=== PATIENT | male | born 1940 | race Caucasian/White ===

== ENCOUNTER 2017-05-03 01:40 | Inpatient (IN) | payer OTHER ==
[2017-05-03] VITALS (12 sets, daily range): BP systolic 114–154; BP diastolic 74–93
[~2017-05-03] VITALS: Ht 172.7 cm; Wt 98.5 kg
--- NOTE | ~2017-05-03 | CON ---
[place], [place] REPORT OF CONSULTATION NAME: CLAUDIA ALTAMIRANO UNIT #: [id number] ROOM: 519 DOCTOR: ADARSH VIEIRA MD BIRTHDATE: [birth year] DOS: REQUESTING PHYSICIAN: Dr. Wray. REASON FOR CONSULTATION: Incidental finding of new onset atrial fibrillation. ASSESSMENT: 1. Current admission due to incidental finding of atrial fibrillation in the process of patient getting his colonoscopy. 2. Shortness of breath, dyspnea on exertion, but no symptomatic palpitation. 3. No chest pain, heaviness, tightness or jaw pain. 4. History of coronary artery disease, status post PTCA stent placement with Dr. Burnett back in 2011. No record available to me at this time. 5. Hypertension. 6. Unknown level of lipid. 7. Previous history of tobacco abuse, the patient quit a year ago. 8. History of bladder cancer, status post surgery and chemotherapy in 1999. 9. Current evidence of blood in the stool (hemoglobin and hematocrit is still pending). PLAN: 1. Cycle cardiac enzymes. 2. Check D-dimer. 3. Fasting lipid panel. 4. Initiate heparin or Lovenox or Noak's after results of CBC is available. 5. Lopressor 25 mg q. 6 hours (dose will be switched to long-acting in a.m.). 6. Wean off Cardizem drip after starting beta-coleen for heart at least in 90. 7. Echocardiogram. 8. NPO for a Lexiscan stress test in a.m. 9. Attempt for JOEY cardioversion will be done in 3-4 weeks as an outpatient. 10. Consider highly recommend sleep study as an outpatient. 11. Exercise and weight loss. 12. Follow up in our clinic in 4 weeks here in [place]. HISTORY OF PRESENT ILLNESS: The patient is a pleasant 77-year-old gentleman well known to our group with Dr. Newman. The patient apparently underwent a PTCA stent placement following an acute myocardial infarction back in [address] Burnett. No record available to me at this time, but from the Cardiology point of view, the patient apparently had been doing relatively well, was last seen by Dr. Newman, but she had not followed up with our group following after her departure. The patient denies ever any complaint of chest pain, chest pressure, heaviness or tightness. Never there is no jaw pain, no left arm pain, no back pain. The patient presented to the hospital for a colonoscopy where we found incidentally to be in AFib. The patient denies any specific cardiac complaint, but he has been short of breath for the past year with no significant deterioration over the past few weeks. No fever, no chills, no night sweats. Maintain good appetite, no weight loss. Sleeps on 2 pillows with no reported PND, orthopnea or pedal edema. The patient does give a history of loud snoring (his was present during this exam). The patient has been doing relatively well from the heart point of view. [place], [place] REPORT OF CONSULTATION NAME: CLAUDIA ALTAMIRANO UNIT #: [id number] ROOM: [facility] DOCTOR: ADARSH VIEIRA MD BIRTHDATE: [birth year] PAST MEDICAL HISTORY: As detailed in my assessment. SOCIAL HISTORY: The patient quit smoking last year. Prior to that, he smoked since he was 13-year-old. No heavy alcohol or illicit drug abuse. FAMILY HISTORY: There is no early family history of heart disease. CURRENT MEDICATIONS: On presentation to the hospital include Xalatan, aspirin, Neurontin, Prinivil, Procardia, omeprazole and multivitamin. ALLERGIES: The patient has no known drug allergies. REVIEW OF SYSTEMS: Currently, the patient denies any headache, diplopia or blurry vision. No fever, no chills, no night sweats. No abdominal pain, no more bright red blood per rectum. No reported tarry stools. The patient admits to joint pain and low back pain, but no muscular pain, no anxiety, no depression. no o polyuria, no polydipsia, no skin rash. Review of all other systems has been negative. PHYSICAL EXAMINATION: GENERAL: The patient is alert, oriented x3, quite pleasant. The patient is flat in bed in no apparent distress. VITAL SIGNS: Blood pressure 141/90, heart rate 106, respiratory rate of 16, temperature 98.2. HEENT: Extraocular muscles intact. Pupils equal, round and reactive to light. Conjunctivae: No pallor. Throat: No petechiae. NECK: Good upstroke. Unable to appreciate any bruit. No lymphadenopathy, no thyromegaly. HEART: S1, S2 with distant heart sounds. Unable to appreciate any rub, no retrosternal heave. CHEST AND BACK: No deformities. LUNGS: Decreased air movement, but no michael wheezing or rales. ABDOMEN: Obese, soft, nontender. Present bowel sounds. No masses, no bruits. LOWER EXTREMITIES: There is mild ankle edema with faint distal pulses. NEUROLOGIC: Grossly nonfocal. SKIN: No significant rash. LABORATORY DATA: CPK is 40, MB is 0.9, troponin 0.022. No other labs are available to me at this time. [place], [place] REPORT OF CONSULTATION NAME: CLAUDIA ALTAMIRANO UNIT #: [id number] ROOM: 519 DOCTOR: ADARSH VIEIRA MD BIRTHDATE: [birth year] ADARSH VIEIRA MD CM:CONSTR:REPORT OF CONSULTATION 1205 05/03/17 0426 interface
--- NOTE | ~2017-05-03 | ST ---
[place], [place] EXERCISE STRESS TEST REPORT NAME: [facility]O [facility]: [id number] UNIT #: [id number] ROOM: [facility] DOCTOR: ADARSH VIEIRA MD BIRTHDATE: [birth year] DOS: INDICATION: Atrial fibrillation. PROCEDURE: The patient was brought into the stress lab. The procedure was explained with risks, benefits, and alternatives. Lexiscan was injected. The patient tolerated the procedure well. Following the injection, there was no evidence of any significant ST or T-wave changes suggestive of myocardial ischemia. No arrhythmias were noted. Occasional aberrantly conducted beats were seen. BLOOD PRESSURE RESPONSE: Resting blood pressure 168/80 with ending blood pressure 148/68. FINAL IMPRESSION: 1. Adequate Lexiscan stress test. 2. Negative Lexiscan stress test for stress-induced myocardial ischemia. 3. No arrhythmias were noted. 4. Nuclear images will be reported separately. ADARSH VIEIRA MD CM:STRESS:EXERCISE STRESS TEST REPORT [id number] ADARSH VIEIRA MD
--- NOTE | ~2017-05-03 | PR ---
[place], [place] PROGRESS NOTE NAME: [id number] UNIT #: [id number] ROOM: 519 DOCTOR: ADARSH VIEIRA MD BIRTHDATE: [birth year] DOS: 05/04/2017 SUBJECTIVE: The patient is sitting in the stress lab. Denies any specific cardiac complaint. He is more alert, more comfortable, no specific cardiac complaint. No chest pain, no chest pressure, no symptomatic palpitation. OBJECTIVE: VITAL SIGNS: Blood pressure 128/64, heart rate 68, respiratory rate of 14, temperature 97.8. NECK: Good upstroke, no bruit. HEART: S1, S2 with no rub. LUNGS: Decreased air movement, but no michael wheezing or rales. ABDOMEN: Obese, soft, nontender. Present bowel sounds. EXTREMITIES: Lower extremities, no significant edema. LABORATORY DATA: White count 9.3, hemoglobin 13.5. Potassium 3.4, GFR more than 60%. Hemoglobin A1c 6.2. ASSESSMENT AND PLAN: Incidental finding of atrial fibrillation on patient's presentation for colonoscopy and EGD. So far, the patient has been doing relatively well. He is completely asymptomatic, his heart rate is quite well controlled on the current dose of beta coleen. There was also no evidence of any bleed. For that, we will switch Lopressor to 50 mg twice a day along with switching Lovenox to Xarelto 20 mg once a day with food. The patient can be discharged. We will be seeing him in clinic within 3 weeks to consider JOEY and cardioversion. Highly recommend checking for sleep study for possible obstructive sleep apnea in view of his current diagnosis. Exercise, weight loss is also highly recommended. Again, we will be seeing the patient within 3-4 weeks in our clinic here. ADARSH VIEIRA MD CM:DANNY [id number] 1427 ADARSH VIEIRA MD 05/05/17 0634 interface
--- NOTE | ~2017-05-03 | O ---
[place], [place] OPERATIVE NOTE NAME: CLAUDIA ALTAMIRANO UNIT #: [id number] ROOM: 519 DOCTOR: KENDRA NGUYEN MD BIRTHDATE: [birth year] DOS: PROCEDURE #1 HISTORY OF PRESENT ILLNESS: The patient is a 77-year-old who has presented with a chief complaint of guaiac positivity, undergoing investigation. ALLERGIES: No known medication. FAMILY HISTORY: Noncontributory. PAST SURGICAL HISTORY: Back and bladder CA. PAST MEDICAL HISTORY: Hypertension and chronic back pain. SOCIAL HISTORY: Nonsmoker. Social alcohol consumer. The patient is on aspirin. PROCEDURE: Today's procedure part of investigation is panendoscopy and colonoscopy. PREMEDICATIONS: Versed and Diprivan. SCOPE: Olympus forward-viewing gastroscope Q10 video. REPORT: After putting the patient in left lateral position and after application of lubricant to the scope, the scope was introduced. Thereafter, under direct visualization, I advanced through the length of esophagus without difficulty. Gastric pouch was entered. Multiple antral erosions were identified. Biopsy from margin of one was obtained. Photographic series done. Duodenitis was noticed. The patient was gradually extubated along the greater curvature. The patient tolerated the procedure well. IMPRESSION: Gastritis, multiple gastric erosions most likely secondary to aspirin status post biopsy. PLAN AND DISCUSSION: The patient is going to be started on omeprazole 20 mg 1 daily for duodenitis and gastric erosions. The patient's aspirin is going to be advised to be taken only on full stomach. On the other hand, we are going to proceed with colonoscopy. PROCEDURE #2 HISTORY OF PRESENT ILLNESS: A 77-year-old patient who has presented with chief complaint of guaiac positivity, undergoing investigation. PROCEDURE: Today's procedure part of investigation is colonoscopy plus piecemeal polypectomy of the polyp at 7 cm in rectal pouch, which is broad plus tattoo marking of the site. [place], [place] OPERATIVE NOTE NAME: CLAUDIA ALTAMIRANO UNIT #: [id number] ROOM: [facility] DOCTOR: KENDRA NGUYEN MD BIRTHDATE: [birth year] REPORT: After putting the patient in the left lateral position and after application of lubricant to rectal pouch and digital examination, scope was introduced. Thereafter, under direct visualization, I advanced through the length of colon without difficulty. Base of the cecum explored. Appendiceal orifice identified and ileocecal valve was defined. Scope was withdrawn back to the sigmoid colon where there is moderate diverticulosis. There was some residual retained stool. As much as possible, this was suctioned out and lavaged. In the rectal pouch at approximately 7 cm from rectal sphincter, broad-based polypoid lesion, which is fragile in its consistency with piecemeal polypectomy assessed. I am concerned for dysplastic cell in this polyp. Tattoo marking of the site was performed and air was suctioned out. The patient extubated and tolerated the procedure well. IMPRESSION: Broad based sessile polypoid lesion at 7 cm rectal pouch, ruling out carcinoma, status post piecemeal polypectomy, status post tattoo marking, diverticulosis of sigmoid colon in moderate degree and some retained stool. PLAN AND DISCUSSION: Withholding aspirin for 3 days, omeprazole 20 mg 1 daily for the upper GI findings and we will await pathology, which has been earmarked to rule out carcinoma. KENDRA NGUYEN MD CM:OPRECORD:OPERATIVE NOTE [id number] LAURENT NGUYEN MD 05/03/17 1402 interface
[~2017-05-03 01:40] MED LIST: ASPIRIN ADULT L81 M1 PO; CLARITIN LIQUI-10 MG PO; ESIDREX,ORETIC,25 MG PO; NEURONTIN300 MG PO; OSCAL/D,OYSTER250 MG PO; PLAVIX75 MG PO; PRESERVISION L1 EACH PO; PRINIVIL20 MG PO; PROCARDIA XL30 MG PO; XALATAN 0.005%2.5 ML OS
[2017-05-03] MEDS ORDERED: OMEPRAZOLE20 M2 PO (08:46)
--- NOTE | 2017-05-03 09:27 | NUR ---
DR. GREEN NOTIFIED REGARDING PT. WITH NEW ONSET AFIB DR. GREEN ACCEPTED PT. FOR [facility] [place] WITH CARDIAC CONSULT DR. ROPER WITH CARDIAC ENZYMES X3, AND 12 LEAD EKG DOCUMENT RESTORER NOTIFIED OF ADMISSION PT. GOING TO 5TH FLOOR ROOM 519
--- NOTE | 2017-05-03 09:40 | NUR ---
DR. VIEIRA STRIP FEEDER NOTIFIED OF CONSULT.
[2017-05-03 09:55] LABS: CKMB 0.9 ng/ml (0.5-3.6); TROPONIN I 0.022 ng/ml (<0.045)
--- NOTE | 2017-05-03 10:13 | NUR ---
FAMILY REQUESTED DR. GREEN NOT TO BE ON THE CASE AND WANTED THE HOSPITALIST DR. GREEN NOTIFIED OF REQUESTED. DR. ESTES HOSPITALIST NOTIFIED AND ACCEPTED CARE OF PT. THE ACCEPTING NURSE ON 5TH FLOOR WAS INFORMED OF THE CHANGE ALONG WITH THE ORDERS FROM THE DOCTOR THAT WAS INITIATED IN RECOVERY.
--- NOTE | 2017-05-03 11:03 | NUR ---
A 77, admitted to , under the services of ANICETO Aviles DO with a diagnosis of ATRIAL FIB/FLUTTER. Chief complaint is RAPID HEART RATE. Patient arrived via bed from OP/ADMIT. Monitor applied. Initial assessment completed. Vital signs taken and recorded. ANICETO AVILES DO notified of admission to the unit. Orders received. See assessment for past medical history, medications and allergies. Patient and/or family oriented to unit. [facility] ICCU visitation policy reviewed. Clothing/patient valuable form completed. HARPREET BRADY
[2017-05-03 12:53] LABS: BASO % 0.2 % (0.0-1.0); EOS # 0.1 10*3/uL (0.0-0.4); EOS % 1.2 % (1.0-4.0); HEMATOCRIT 44.8 % (42.0-52.0); HEMOGLOBIN 14.1 g/dl (14.0-18.0); LYMPH # 1.7 10*3/uL (1.3-4.4); LYMPH % 16.9 % (27.0-41.0); MEAN CELL VOLUME 94.7 fl (80.0-94.0); MEAN CORPUSCULAR HGB 29.8 pg (27.0-31.0); MEAN CORPUSCULAR HGB CONC 31.5 g/dl (33.0-37.0); MEAN PLATELET VOLUME 10.7 fl (9.6-12.3); MONO # 0.8 10*3/uL (0.1-1.0); MONO % 8.2 % (3.0-9.0); NEUT # 7.1 10*3/uL (2.3-7.9); NEUT % 73.1 % (47.0-73.0); PLATELET COUNT AUTOMATED 185 10*3/uL (130-400); RED BLOOD COUNT 4.73 10*6/uL (4.50-5.90); WHITE BLOOD COUNT 9.8 10*3/uL (4.8-10.8)
[2017-05-03 13:09] LABS: FREE T4 1.36 ng/dl (0.76-1.46)
[2017-05-03 13:12] LABS: ALBUMIN 3.2 gm/dl (3.1-4.5); CREATININE 1.4 mg/dL (0.70-1.30); PHOSPHOROUS 2.7 mg/dL (2.5-4.9); POTASSIUM 3.7 mmol/L (3.5-5.1); TOTAL PROTEIN 7.2 gm/dL (6.4-8.2)
[2017-05-03 13:20] LABS: THYROID STIM HORMONE (HS) 1.37 uIU/ml (0.358-4.75)
--- NOTE | 2017-05-03 22:00 | NUR ---
16 FR F/C INSERTED IN PT AT THIS TIME. IMMEDIATE RETURN OF CLEAR LIGHT YELLOW URINE OBTAINED. PT TOLERATED PROCEDURE VERY WELL. NO C/O VOICED AT THIS TIME.
[2017-05-04] VITALS (8 sets, daily range): BP systolic 120–154; BP diastolic 64–81
[2017-05-04 07:14] LABS: BASO % 0.2 % (0.0-1.0); EOS # 0.2 10*3/uL (0.0-0.4); EOS % 1.6 % (1.0-4.0); HEMATOCRIT 42.9 % (42.0-52.0); HEMOGLOBIN 13.5 g/dl (14.0-18.0); LYMPH # 1.9 10*3/uL (1.3-4.4); LYMPH % 20.6 % (27.0-41.0); MEAN CELL VOLUME 95.1 fl (80.0-94.0); MEAN CORPUSCULAR HGB 29.9 pg (27.0-31.0); MEAN CORPUSCULAR HGB CONC 31.5 g/dl (33.0-37.0); MEAN PLATELET VOLUME 11.7 fl (9.6-12.3); MONO # 0.9 10*3/uL (0.1-1.0); MONO % 9.5 % (3.0-9.0); NEUT # 6.3 10*3/uL (2.3-7.9); NEUT % 67.8 % (47.0-73.0); PLATELET COUNT AUTOMATED 170 10*3/uL (130-400); RED BLOOD COUNT 4.51 10*6/uL (4.50-5.90); RED CELL DISTRI WIDTH 14.2 % (0-14.5); WHITE BLOOD COUNT 9.3 10*3/uL (4.8-10.8)
[2017-05-04 07:42] LABS: ACT PARTIAL THROMBO TIME 27.2 SECONDS (20.8-31.5); INTERNATIONAL NORM RATIO 1.1 (2.0-3.5)
[2017-05-04 07:43] LABS: BUN 19 mg/dl (7-24); CHLORIDE 110 mmol/L (98-107); CHOLESTEROL 113 mg/dL (<200); CREATININE 1.15 mg/dL (0.70-1.30); HDL CHOLESTEROL 40 mg/dl (40-60); LDL CHOLESTEROL 48 mg/dL (9-159); MAGNESIUM 1.9 mg/dL (1.5-2.1); POTASSIUM 3.4 mmol/L (3.5-5.1); SODIUM 143 mmol/L (136-145); TRIGLYCERIDES 127 mg/dl (<150); VLDL CHOLESTEROL 25 mg/dL (6-40)
[2017-05-04 08:05] LABS: VITAMIN D, 25-HYDROXY 32.7 ng/mL (30-100)
--- NOTE | 2017-05-04 09:00 | NUR ---
case management attempted to visit with patient, patient was out of room at this time, will see later today
--- NOTE | 2017-05-04 10:30 | NUR ---
INFORMED CONSENT SIGNED FOR LEXISCAN WITH DR VIEIRA. RESTING EKG AF WITH RARE PVC AND RBBB. POX 93-94% VIA RA, DIFFUSE RHONCHI, CLEARING WITH A COUGH. COMPLETED ONE MINUTE OF LEXISCAN PROTOCOL RECEIVING LEXISCAN 0.4 MG OVER 10 SECONDS. DEVELOPED SOB THAT WAS RELIEVED DURING RECOVERY. HAD A PEAK HR OF 122 WITH A BP OF 150/70. LAST RECOVERY HR OF 110 WITH A BP OF 148/68. AWAITING NUCLEAR IMAGING IN STABLE CONDITION.
[2017-05-04] MEDS ORDERED: METOPROLOL TART50 M1 PO (14:58)
[2017-05-04] MEDS ORDERED: XARE20MG PO (14:58)
[2017-05-04] MEDS ORDERED: B12,B-12,B 12500 MC1 PO (14:59)
--- NOTE | 2017-05-04 16:45 | NUR ---
DISCHARGE INSTRUCTIONS REVIEWED. HEPLOCK AND POTATO PEELER DISCONTINUED. PT AMBULATED OFF THE FLOOR WITH HIS . REFUSED WHEELCHAIR.
== END 2017-05-04 16:45 | disposition home or self-care (01) | DRG 308 ==
LOC: SDC 01:40 → 5E 09:30
PROVIDERS: Family Medicine; Internal Medicine; Internal Medicine Cardiovascular Disease; Student in an Organized Health Care Education/Training Program; ADMIT Internal Medicine
PROC: 4A02XM4 Measurement of Cardiac Total Activity, External Approach (ICD-10-PCS; principal; 2017-05-03)
PROC: 0DBN8ZX Excision of Sigmoid Colon, Via Natural or Artificial Opening Endoscopic, Diagnostic (ICD-10-PCS; principal; 2017-05-03)
PROC: 0DB68ZX Excision of Stomach, Via Natural or Artificial Opening Endoscopic, Diagnostic (ICD-10-PCS; principal; 2017-05-03)
PROC: 0DBP8ZX Excision of Rectum, Via Natural or Artificial Opening Endoscopic, Diagnostic (ICD-10-PCS; principal; 2017-05-03)
PROC: 3E073KZ Introduction of Other Diagnostic Substance into Coronary Artery, Percutaneous Approach (ICD-10-PCS; principal; 2017-05-03)
DX: I48.92 Unspecified atrial flutter (principal); K29.01 Acute gastritis with bleeding; D68.59 Other primary thrombophilia; T39.015A Adverse effect of aspirin, initial encounter; I48.91 Unspecified atrial fibrillation; K29.80 Duodenitis without bleeding; K57.30 Diverticulosis of large intestine without perforation or abscess without bleeding; I10 Essential (primary) hypertension; K21.9 Gastro-esophageal reflux disease without esophagitis; G47.33 Obstructive sleep apnea (adult) (pediatric); H40.9 Unspecified glaucoma; I25.10 Atherosclerotic heart disease of native coronary artery without angina pectoris; E66.9 Obesity, unspecified; Z95.5 Presence of coronary angioplasty implant and graft; Z87.891 Personal history of nicotine dependence; Z83.3 Family history of diabetes mellitus; Z82.49 Family history of ischemic heart disease and other diseases of the circulatory system; Z79.82 Long term (current) use of aspirin; Z79.899 Other long term (current) drug therapy; Z85.51 Personal history of malignant neoplasm of bladder; Z92.21 Personal history of antineoplastic chemotherapy; Y92.89 Other specified places as the place of occurrence of the external cause; Z68.33 Body mass index [BMI] 33.0-33.9, adult

== ENCOUNTER → 2017-05-23 | Day surgery (SDC) | payer OTHER ==
[~2017-05-23] VITALS: Ht 172.7 cm; Wt 98.4 kg
[~2017-05-23] MED LIST changes: +B12,B-12,B 12500 MC1 PO; +METOPROLOL TART50 M1 PO; +OMEPRAZOLE20 M2 PO; +XARE20MG PO
--- NOTE | ~2017-05-23 | O ---
[place], [place] OPERATIVE NOTE NAME: CLAUDIA ALTAMIRANO UNIT #: [id number] ROOM: DOCTOR: RAJAN ROPER MD BIRTHDATE: [birth year] DOS: 05/23/2017 PROCEDURE: Elective cardioversion. INDICATIONS: Atrial fibrillation and flutter with dyspnea. PROCEDURE DETAILS: Informed written consent was obtained from the patient. He was brought to the operating suite in a post-absorptive state. Cardioversion pads were applied to his anterior and posterior chest. He was anesthetized by Anesthesia staff and general anesthetic was utilized. When satisfactory degree of anesthesia was obtained, the patient was given a single biphasic synchronized shock at 100 watt seconds. He had a prolonged episode of asystole lasting about 6-10 seconds, followed by sinus bradycardia with frequent PVCs, followed by sinus bradycardia. His final rhythm was sinus bradycardia with a rate of about 50. Vital signs remained stable. The patient awakened normally and had no focal neurologic defects at the end of the procedure. IMPRESSION: Successful biphasic synchronized cardioversion. RAJAN ORPER MD CM:OPRECORD:OPERATIVE NOTE 1131 [id number] RAJAN ROPER MD 05/23/17 1147 interface
[2017-05-23 09:45] VITALS: BP 191/145
[2017-05-23 11:24] VITALS: BP 123/82
[2017-05-23 11:39] VITALS: BP 135/84
[2017-05-23 11:54] VITALS: BP 138/90
== END | disposition home or self-care (01) ==
LOC: SDC 05-19 14:45
DX: I48.91 Unspecified atrial fibrillation (principal); I48.4 Atypical atrial flutter; I25.10 Atherosclerotic heart disease of native coronary artery without angina pectoris; J44.9 Chronic obstructive pulmonary disease, unspecified; I10 Essential (primary) hypertension; E66.01 Morbid (severe) obesity due to excess calories; Z79.82 Long term (current) use of aspirin; Z79.899 Other long term (current) drug therapy

== ENCOUNTER 2017-05-24 01:36 | Inpatient (IN) | payer OTHER ==
[2017-05-24] VITALS (8 sets, daily range): BP systolic 145–156; BP diastolic 77–99
[~2017-05-24] VITALS: Ht 172.7 cm; Wt 96.4 kg
--- NOTE | ~2017-05-24 | WRIGHTHP ---
[place], [place] PATIENT HISTORY AND PHYSICAL EXAM NAME: CLAUDIA ALTAMIRANO [facility] #: [id number] UNIT #: [id number] ROOM: [facility] DOCTOR: ELVIRA HURT MD BIRTHDATE: [birth year] DOS: 05/24/2017 HISTORY OF PRESENT ILLNESS: The patient is a 77-year-old gentleman with past medical history of: 1. Atrial fibrillation/flutter, status post cardioversion yesterday. 2. Diverticulosis. 3. Benign essential hypertension. 4. GERD. 5. Coronary artery disease of the [place] vessels. 6. Obesity. 7. Primary thrombophilia and hypercoagulable state. The patient presented to the Emergency Department at [facility] after undergoing cardioversion in the morning. The patient had increasing shortness of breath and some chest discomfort. In the Emergency Department, the patient was found to be bradycardic and in congestive heart failure. The patient was recommended for admission and further management. After admission, the patient is starting to feel somewhat better. He is still on oxygen. No more complaint of chest pains. He had no dizziness or fainting episodes. No other GI or urinary symptoms. REVIEW OF SYSTEMS: LUNGS: Some increasing shortness of breath. GASTROINTESTINAL: No nausea, vomiting, diarrhea or constipation. CARDIOVASCULAR: Some chest discomfort. No palpitations. SOCIAL HISTORY: The patient does not smoke cigarettes, drink alcohol and denies any drug abuse. ALLERGIES: No known drug allergies. MEDICATIONS: The patient on Latanoprost eyedrops, Xarelto, gabapentin, omeprazole, aspirin. PHYSICAL EXAMINATION: GENERAL: Alert and oriented x 3, in no visible distress. HEENT AND NECK: Extraocular movements are intact. Sclerae are anicteric. Oral mucosa is moist and clean. No obvious facial weakness. Neck is supple without any lymphadenopathy. No thyromegaly. No JVD. No carotid arterial bruits. The patient is wearing oxygen by nasal cannula. LUNGS: Clear to auscultation. No wheezing. No rhonchi. CARDIOVASCULAR SYSTEM: Heart rate is regular in rate and rhythm. S1 and S2 normally audible. No significant murmur or any other abnormal cardiac sounds. ABDOMEN: Soft, nontender. No obvious organomegaly. Bowel sounds are present. No obvious herniation. EXTREMITIES: Without significant cyanosis or edema. Warm to touch. CENTRAL NERVOUS SYSTEM: Alert and oriented x 3. Cranial nerves II-XII are intact. Speech is normal. The patient is able to move all extremities. Normal muscle strength. Deep tendon reflexes are equal on both sides. Plantars were downgoing. [place], [place] PATIENT HISTORY AND PHYSICAL EXAM NAME: CLAUDIA ALTAMIRANO UNIT #: [id number] ROOM: [facility] DOCTOR: ELVIRA HURT MD BIRTHDATE: [birth year] LABORATORY DATA: The patient's cardiac enzymes have been negative so far. ProBNP elevated to 9670. BUN and creatinine elevated at 37 and 2.8. IMPRESSION: 1. Acute over chronic kidney failure. The patient's kidney function is to be monitored and serum electrolytes to be followed on daily basis. 2. Acute congestive heart failure, treated with diuresis. We will check echocardiogram. 3. Sinus bradycardia, treated with stopping metoprolol. The patient is in ICU and still remains bradycardic. The patient's cardiac enzymes are being checked and have been normal so far. 4. Benign essential hypertension. Blood pressure is being monitored and controlled. 5. Gastroesophageal reflux disease and esophagitis, asymptomatic. 6. History of chronic atrial fibrillation and flutter. The patient cardioverted yesterday morning and remains in sinus bradycardia. 7. Coronary artery disease of the [place] vessels, without chest pains. 8. Dr. Koroma and Dr. Bazzi, the counter molder to follow. ELVIRA HURT MD CM:HISPHYS:PATIENT HISTORY AND PHYSICAL EXAMINATION [id number] ELVIRA HURT MD 05/24/17 1339 interface
--- NOTE | ~2017-05-24 | DS ---
[place], [place] DISCHARGE SUMMARY NAME: CLAUDIA ALTAMIRANO UNIT #: [id number] ROOM: [facility] DOCTOR: ELVIRA HURT MD BIRTHDATE: [birth year] DOS: 05/25/2017 DISCHARGE DIAGNOSES: 1. Acute over chronic kidney failure. 2. Acute congestive heart failure, mixed systolic and diastolic type. 3. Sinus bradycardia. 4. Benign essential hypertension. 5. Gastroesophageal reflux disease and esophagitis. 6. History of atrial fibrillation/flutter in the past, status post cardioversion. 7. Coronary artery disease of [place] vessels. 8. Primary thrombophilia and hypercoagulable state. 9. Obesity. 10. Diverticulosis. HOSPITAL COURSE: The patient was admitted at [facility] after he was found to be in CHF and bradycardia after cardioversion was performed earlier in the day. The patient was admitted to the ICU and monitored closely. The patient was diuresed with IV Lasix and his breathing has improved. The patient is being assessed for home oxygen at present time. Cardiac enzymes were negative. Acute over chronic kidney failure. The patient's BUN and creatinine were elevated and kidney function has worsened, apparently related to CHF and bradycardia. Sinus bradycardia. The patient's metoprolol was stopped and for his hypotension lisinopril was stopped also. Benign essential hypertension, now controlled. His blood pressure medicines have been stopped. GERD and esophagitis, asymptomatic. History of atrial flutter and fibrillation. The patient is status post cardioversion. Coronary artery disease of [place] vessels, without any chest pains. The patient was evaluated by Dr. Koroma and Dr. Bazzi, the salon supervisor and cleared for discharge to home today. Chronic respiratory failure and hypoxemia. The patient requires 2 liters of oxygen at home continuously now and is being arranged prior to his discharge. LABORATORY DATA: Cardiac enzymes were negative. Chest x-ray showed some mild vascular congestion. BNP elevated to 9600. BUN and creatinine 37 and 2.8. Chronic kidney disease stage 4 now. DISCHARGE MANAGEMENT: Latanoprost eyedrops to left eye 1 drop every night, [place], [place] DISCHARGE SUMMARY NAME: CLAUDIA ALTAMIRANO UNIT #: [id number] ROOM: [facility] DOCTOR: ELVIRA HURT MD BIRTHDATE: [birth year] Xarelto 20 mg a day, gabapentin 300 mg b.i.d., vitamin B12 500 mcg daily, omeprazole 20 mg a day. The patient was started on oxygen 2 liters per minute continuous by nasal cannula because he was hypoxemic and pulse ox dropped to 88% without oxygen at rest and with ambulation. ELVIRA HURT MD CM:DISCHBIRD [id number] ELVIRA HURT MD 05/25/172039 interface
[2017-05-24 01:50] LABS: HEMATOCRIT 44.7 % (42.0-52.0); MEAN CELL VOLUME 93.9 fl (80.0-94.0); MEAN CORPUSCULAR HGB 29.4 pg (27.0-31.0); MEAN CORPUSCULAR HGB CONC 31.3 g/dl (33.0-37.0); MEAN PLATELET VOLUME 11.2 fl (9.6-12.3); PLATELET COUNT AUTOMATED 200 10*3/uL (130-400); RED BLOOD COUNT 4.76 10*6/uL (4.50-5.90); RED CELL DISTRI WIDTH 13.7 % (0-14.5); WHITE BLOOD COUNT 13.8 10*3/uL (4.8-10.8)
[2017-05-24 02:04] LABS: ACT PARTIAL THROMBO TIME 25.2 SECONDS (20.8-31.5); INTERNATIONAL NORM RATIO 1.3 (2.0-3.5)
[2017-05-24 02:07] LABS: ALBUMIN 3.5 gm/dl (3.1-4.5); CREATININE 2.8 mg/dL (0.70-1.30); POTASSIUM 4.5 mmol/L (3.5-5.1); TOTAL PROTEIN 7.7 gm/dL (6.4-8.2); TROPONIN I 0.038 ng/ml (<0.045)
[2017-05-24 02:08] LABS: BASOPHILS 2 % (0-1); PLATELET SUFFICIENCY NORMAL (NORMAL); TOTAL CELLS COUNTED 100 #CELLS
--- NOTE | 2017-05-24 02:30 | NUR ---
VERBAL ORDER GIVEN BY DR TO TO GIVE 0.5MG ATROPINE IVP. UNABLE TO ORDER THE MEDICATION AT THIS DOSE. ONLY AVAILABLE 1MG. WASTED 0.5MG
--- NOTE | 2017-05-24 03:00 | NUR ---
A 77, admitted to ICCU, under the services of Dr. LICHA GARZA,ELVIRA Swain with a diagnosis of CHF AMD SYMPTOMATIC BRADYCARDIA. Chief complaint is INCREASED SHORTNESS OF BREATH AND CHEST PRESSURE. Patient arrived via stretcher from ER. Monitor applied. Initial assessment completed. Vital signs taken and recorded. DR. LICHA GARZA,ELVIRA Swain notified of admission to the unit. Orders received. See assessment for past medical history, medications and allergies. Patient and/or family oriented to unit. [facility] ICCU visitation policy reviewed. Clothing/patient valuable form completed. TRINA LE
--- NOTE | 2017-05-24 03:49 | NUR ---
CONSULT CALLED TO DOCTOR ROPER NEW ORDERS GIVEN TO HOLD LISINOPRIL DUE TO RENAL FUNCTION AND LABS TO BE DRAWN THIS AM. HE SAID HE WOULD BE IN TO SEE PATIENT TODAY.
--- NOTE | 2017-05-24 04:01 | NUR ---
16 F GOMEZ CATH PLACED IN PATIENT PER DOCTORS ORDERS. PATIENT TOLERATED WELL. INITAL OUTPUT 25CC
--- NOTE | 2017-05-24 04:44 | NUR ---
HOME MEDS REVIEWED WITH PATIENTS . MED REC UP TO DATE.
[2017-05-24 05:07] LABS: ALBUMIN 3.1 gm/dl (3.1-4.5); CREATININE 2.83 mg/dL (0.70-1.30); POTASSIUM 4.8 mmol/L (3.5-5.1); TOTAL PROTEIN 6.7 gm/dL (6.4-8.2)
[2017-05-24 05:15] LABS: THYROID STIM HORMONE (HS) 2.16 uIU/ml (0.358-4.75)
--- NOTE | 2017-05-24 07:27 | NUR ---
Site Administrator in to talk to patient. Patient states lives at HOME with HIS . There are 12 steps in the home. Physician: DR EAGLE [facility] Patient's level of ADLs: INDEPENDENT Patient has working utilities: YES DME: OCC Follow-up physician's appointment after d/c: CANE Does patient want to access PORTAL?: Discharge plan HOME. JESIKA LORENZANA
--- NOTE | 2017-05-24 08:19 | NUR ---
Awake and alert. No c/o this AM. Breakfast ordered.
--- NOTE | 2017-05-24 10:35 | NUR ---
PHYSICAL THERAPY Patient and both reports patient has no PT needs. He is (i) with mobility. Thank you for this referral. Nyla Gaffney,PT
--- NOTE | 2017-05-24 14:21 | NUR ---
1400 c/o [address] Dr[address] Hernandez notified and order for zofran recieved. On entering room to administer . Pt. stated he no longer needed it and felt ok at this time. med wasted.
--- NOTE | 2017-05-24 14:22 | NUR ---
[facility]
[2017-05-25] VITALS: BP 128/71
[2017-05-25 04:00] VITALS: BP 141/72
[2017-05-25 04:36] LABS: BASO % 0.3 % (0.0-1.0); EOS # 0.2 10*3/uL (0.0-0.4); EOS % 1.5 % (1.0-4.0); HEMATOCRIT 41.5 % (42.0-52.0); HEMOGLOBIN 12.6 g/dl (14.0-18.0); LYMPH # 1.6 10*3/uL (1.3-4.4); LYMPH % 14.9 % (27.0-41.0); MEAN CELL VOLUME 95.4 fl (80.0-94.0); MEAN CORPUSCULAR HGB CONC 30.4 g/dl (33.0-37.0); MEAN PLATELET VOLUME 11.7 fl (9.6-12.3); MONO % 9.5 % (3.0-9.0); NEUT # 8.1 10*3/uL (2.3-7.9); NEUT % 73.4 % (47.0-73.0); PLATELET COUNT AUTOMATED 164 10*3/uL (130-400); RED BLOOD COUNT 4.35 10*6/uL (4.50-5.90); RED CELL DISTRI WIDTH 13.5 % (0-14.5)
[2017-05-25 04:52] LABS: CREATININE 2.74 mg/dL (0.70-1.30); POTASSIUM 3.9 mmol/L (3.5-5.1)
--- NOTE | 2017-05-25 05:16 | NUR ---
PT HAS SLEPT WELL THIS PM. POSITIONS SELF IN BED. UNDERPAD AND GOWN CHANGED GOMEZ, ALTHOUGH PATENT, LEAKED WHEN PT WAS TURNED ON HIS SIDE AND TUBING WAS CRIMPED.
[2017-05-25 08:00] VITALS: BP 155/80
--- NOTE | 2017-05-25 08:44 | NUR ---
Partial bath at bedside and then to chair. Christie cath leaking . underpad saturated. Folcy cath was dc'd.
--- NOTE | 2017-05-25 08:46 | NUR ---
Dr[facility]
[2017-05-25 12:00] VITALS: BP 130/64
--- NOTE | 2017-05-25 13:07 | NUR ---
PHYSICAL THERAPY PAtient evaluated in [facility], full evaluation to follow. Continue with PT as per plan of care with fall and cardiac precautions, Home with family and home health RN. PAtient is low complexity via chart review, tests and evaluation: [id number]. thank you for thius referral. ariadne acuña,PT
--- NOTE | 2017-05-25 15:18 | NUR ---
Dr[facility]
[2017-05-25 16:00] VITALS: BP 135/64
--- NOTE | 2017-05-25 16:03 | NUR ---
PULSE OX ON 2L AT REST 95%. O2 REMOVED PULSE OX DECREASING TO 88%. PT. PLACED ON 2L O2, AMBULATED IN CCU, PULSE OX WAS 93%. PT. RETURNED TO ROOM, PLACED ON 2LM O2, RECOVERY PULSE OX WAS 96%. B/P PRIOR TO AMBULATION WAS 130/64, HEART RATE 66. B/P POST AMBULATION WAS 141/72, HEART RATE 68. DR. HURT AND RN NOTIFIED.
--- NOTE | 2017-05-25 16:24 | NUR ---
[employer] WAS CONTACTED FOR O2 SERVICE. THEY WILL BE BRINGING A TANK. RN NOTIFIED.
--- NOTE | 2017-05-25 16:31 | NUR ---
Discharge order recieved. awaiting O2 delivery for discharge. Spouse here and aware.
--- NOTE | 2017-05-25 17:41 | NUR ---
DUE TO INSURANCE COVERAGE, [facility] # [phone].
--- NOTE | 2017-05-25 19:15 | NUR ---
Portable O2 provided , discharge instruction given , voiced understanding. Discharged to home
== END 2017-05-25 19:15 | disposition home or self-care (01) | DRG 292 ==
LOC: ED 01:36 → ICCU 02:39
PROVIDERS: Internal Medicine Cardiovascular Disease; Student in an Organized Health Care Education/Training Program; ADMIT Internal Medicine
PROC: 5A09357 Assistance with Respiratory Ventilation, Less than 24 Consecutive Hours, Continuous Positive Airway Pressure (ICD-10-PCS; principal; 2017-05-24)
DX: I11.0 Hypertensive heart disease with heart failure (principal); N17.9 Acute kidney failure, unspecified; J96.11 Chronic respiratory failure with hypoxia; D68.59 Other primary thrombophilia; I48.92 Unspecified atrial flutter; I49.5 Sick sinus syndrome; D72.829 Elevated white blood cell count, unspecified; H40.9 Unspecified glaucoma; E66.09 Other obesity due to excess calories; I25.10 Atherosclerotic heart disease of native coronary artery without angina pectoris; I48.2 Chronic atrial fibrillation; K57.90 Diverticulosis of intestine, part unspecified, without perforation or abscess without bleeding; K21.0 Gastro-esophageal reflux disease with esophagitis; I50.41 Acute combined systolic (congestive) and diastolic (congestive) heart failure; Z79.82 Long term (current) use of aspirin; Z79.899 Other long term (current) drug therapy; Z95.5 Presence of coronary angioplasty implant and graft; Z83.3 Family history of diabetes mellitus; Z82.49 Family history of ischemic heart disease and other diseases of the circulatory system; Z84.89 Family history of other specified conditions; Z68.33 Body mass index [BMI] 33.0-33.9, adult

== ENCOUNTER → 2017-06-02 | Outpatient (CLI) | payer OTHER ==
[2017-06-02 13:56] LABS: BASO % 0.3 % (0.0-1.0); EOS # 0.2 10*3/uL (0.0-0.4); EOS % 2.2 % (1.0-4.0); HEMATOCRIT 45.2 % (42.0-52.0); HEMOGLOBIN 13.8 g/dl (14.0-18.0); LYMPH % 19.5 % (27.0-41.0); MEAN CELL VOLUME 95.4 fl (80.0-94.0); MEAN CORPUSCULAR HGB 29.1 pg (27.0-31.0); MEAN CORPUSCULAR HGB CONC 30.5 g/dl (33.0-37.0); MEAN PLATELET VOLUME 12.1 fl (9.6-12.3); MONO # 0.9 10*3/uL (0.1-1.0); MONO % 9.1 % (3.0-9.0); NEUT # 6.9 10*3/uL (2.3-7.9); NEUT % 68.5 % (47.0-73.0); PLATELET COUNT AUTOMATED 206 10*3/uL (130-400); RED BLOOD COUNT 4.74 10*6/uL (4.50-5.90); RED CELL DISTRI WIDTH 13.4 % (0-14.5)
[2017-06-02 14:24] LABS: ALBUMIN 3.2 gm/dl (3.1-4.5); CREATININE 1.88 mg/dL (0.70-1.30); POTASSIUM 4.7 mmol/L (3.5-5.1); TOTAL PROTEIN 7.2 gm/dL (6.4-8.2)
== END | disposition home or self-care (01) ==
LOC: LAB 13:11
PROVIDERS: Physician Assistant
DX: Z01.818 Encounter for other preprocedural examination (principal); R91.1 Solitary pulmonary nodule; C20 Malignant neoplasm of rectum; R06.02 Shortness of breath; J90 Pleural effusion, not elsewhere classified; J98.11 Atelectasis; Z87.891 Personal history of nicotine dependence

== ENCOUNTER → 2017-12-06 | Outpatient (CLI) | payer OTHER | END | disposition home or self-care (01) | LOC: US 01:45 | DX: K76.0 Fatty (change of) liver, not elsewhere classified (principal); K80.80 Other cholelithiasis without obstruction; Z85.048 Personal history of other malignant neoplasm of rectum, rectosigmoid junction, and anus ==

== ENCOUNTER → 2021-01-07 | Outpatient (CLI) | payer OTHER ==
[2021-01-07 10:45] LABS: CREATININE 1.97 mg/dL (0.70-1.30); POTASSIUM 4.3 mmol/L (3.5-5.1)
== END | disposition home or self-care (01) ==
LOC: LAB 09:30
PROVIDERS: ATTEND Specialist
DX: N17.9 Acute kidney failure, unspecified (principal)

== ENCOUNTER 2021-05-02 06:38 | Inpatient (IN) | payer OTHER ==
[~2021-05-02] VITALS: Ht 172.7 cm; Wt 82.8 kg
[2021-05-02] VITALS (13 sets, daily range): BP systolic 118–161; BP diastolic 71–97
[2021-05-02 07:01] LABS: BASO % 0.2 % (0.0-1.0); EOS # 0.3 10*3/uL (0.0-0.4); EOS % 3.4 % (1.0-4.0); HEMATOCRIT 42.4 % (42.0-52.0); LYMPH # 1.5 10*3/uL (1.3-4.4); LYMPH % 15.8 % (27.0-41.0); MEAN CELL VOLUME 93.8 fl (80.0-94.0); MEAN CORPUSCULAR HGB 27.2 pg (27.0-31.0); MEAN PLATELET VOLUME 10.5 fl (9.6-12.3); MONO # 0.8 10*3/uL (0.1-1.0); MONO % 8.4 % (3.0-9.0); NEUT % 71.8 % (47.0-73.0); PLATELET COUNT AUTOMATED 226 10*3/uL (130-400); RED BLOOD COUNT 4.52 10*6/uL (4.50-5.90); RED CELL DISTRI WIDTH 15.5 % (0-14.5); WHITE BLOOD COUNT 9.8 10*3/uL (4.8-10.8)
[2021-05-02 07:15] LABS: ALKALINE PHOSPHATASE 124 U/L (45-117); BUN 37 mg/dl (7-24); CHLORIDE 112 mmol/L (98-107); CREATININE 1.98 mg/dL (0.70-1.30); POTASSIUM 5.1 mmol/L (3.5-5.1); SGOT/AST 12 IU/L (3-35); SGPT/ALT 19 U/L (12-78); SODIUM 145 mmol/L (136-145); TOTAL PROTEIN 7.1 gm/dL (6.4-8.2)
[2021-05-02 07:30] LABS: TROPONIN I < 0.015 ng/ml (<0.045)
[2021-05-02] MEDS ORDERED: BUMETANIDE1 MG PO ×2 (21:19→21:22)
[2021-05-02] MEDS ORDERED: CARVEDILOL25 MG PO (21:20)
[2021-05-02] MEDS ORDERED: ISOSORBIDE DINI30 MG PO (21:20)
[2021-05-02] MEDS ORDERED: HYDRALAZINE HC100 MG PO (21:20)
[2021-05-02] MEDS ORDERED: ELIQUIS2.5 M1 PO (21:21)
[2021-05-03] VITALS (14 sets, daily range): BP systolic 94–174; BP diastolic 47–97
[2021-05-03 06:05] LABS: CREATININE 1.87 mg/dL (0.70-1.30); POTASSIUM 4.7 mmol/L (3.5-5.1)
[2021-05-03 06:15] LABS: FREE T4 1.24 ng/dl (0.76-1.46); THYROID STIM HORMONE (HS) 1.4 uIU/ml (0.358-4.75)
[2021-05-03 06:19] LABS: BASO % 0.3 % (0.0-1.0); EOS # 0.3 10*3/uL (0.0-0.4); EOS % 3.9 % (1.0-4.0); HEMATOCRIT 41.9 % (42.0-52.0); LYMPH % 13.8 % (27.0-41.0); MEAN CELL VOLUME 94.4 fl (80.0-94.0); MEAN CORPUSCULAR HGB 26.8 pg (27.0-31.0); MEAN CORPUSCULAR HGB CONC 28.4 g/dl (33.0-37.0); MEAN PLATELET VOLUME 10.9 fl (9.6-12.3); MONO # 0.7 10*3/uL (0.1-1.0); MONO % 8.8 % (3.0-9.0); NEUT # 5.5 10*3/uL (2.3-7.9); NEUT % 72.9 % (47.0-73.0); PLATELET COUNT AUTOMATED 195 10*3/uL (130-400); RED BLOOD COUNT 4.44 10*6/uL (4.50-5.90); RED CELL DISTRI WIDTH 15.3 % (0-14.5); WHITE BLOOD COUNT 7.5 10*3/uL (4.8-10.8)
[2021-05-04] VITALS (11 sets, daily range): BP systolic 108–172; BP diastolic 61–104
[2021-05-04 04:37] LABS: BASO % 0.3 % (0.0-1.0); EOS # 0.2 10*3/uL (0.0-0.4); EOS % 3.4 % (1.0-4.0); LYMPH # 0.9 10*3/uL (1.3-4.4); LYMPH % 14.2 % (27.0-41.0); MEAN CELL VOLUME 95.4 fl (80.0-94.0); MEAN CORPUSCULAR HGB 27.4 pg (27.0-31.0); MEAN CORPUSCULAR HGB CONC 28.7 g/dl (33.0-37.0); MEAN PLATELET VOLUME 10.4 fl (9.6-12.3); MONO # 0.6 10*3/uL (0.1-1.0); MONO % 9.7 % (3.0-9.0); NEUT # 4.5 10*3/uL (2.3-7.9); NEUT % 72.1 % (47.0-73.0); PLATELET COUNT AUTOMATED 175 10*3/uL (130-400); RED BLOOD COUNT 4.09 10*6/uL (4.50-5.90); WHITE BLOOD COUNT 6.2 10*3/uL (4.8-10.8)
[2021-05-04 04:56] LABS: CREATININE 1.71 mg/dL (0.70-1.30); POTASSIUM 4.5 mmol/L (3.5-5.1)
[2021-05-04] MEDS ORDERED: AMOXICILLIN500 M2 PO (17:30)
[2021-05-04] MEDS ORDERED: PRESERVISION L1 EACH PO (17:30)
[2021-05-04] MEDS ORDERED: XALATAN 0.005%2.5 ML OU (17:30)
[2021-05-04] MEDS ORDERED: TESSALON PERLE100 MG PO (17:31)
[2021-05-04] MEDS ORDERED: LORADAMED10 MG PO (17:31)
[2021-05-04] MEDS ORDERED: MUCUS RELIEF600 MG PO (17:32)
[2021-05-04] MEDS ORDERED: TRELEGY ELLIPT1 EACH INH (17:32)
[2021-05-05] VITALS: BP 98/50
[2021-05-05 06:08] LABS: CREATININE 1.88 mg/dL (0.70-1.30); POTASSIUM 4.4 mmol/L (3.5-5.1)
[2021-05-05 06:19] LABS: BASO % 0.2 % (0.0-1.0); EOS # 0.2 10*3/uL (0.0-0.4); EOS % 4.2 % (1.0-4.0); HEMATOCRIT 35.7 % (42.0-52.0); LYMPH # 0.9 10*3/uL (1.3-4.4); LYMPH % 16.1 % (27.0-41.0); MEAN CELL VOLUME 93.5 fl (80.0-94.0); MEAN CORPUSCULAR HGB CONC 28.9 g/dl (33.0-37.0); MEAN PLATELET VOLUME 10.8 fl (9.6-12.3); MONO # 0.7 10*3/uL (0.1-1.0); MONO % 11.5 % (3.0-9.0); NEUT # 3.8 10*3/uL (2.3-7.9); NEUT % 67.6 % (47.0-73.0); PLATELET COUNT AUTOMATED 188 10*3/uL (130-400); RED BLOOD COUNT 3.82 10*6/uL (4.50-5.90); RED CELL DISTRI WIDTH 14.8 % (0-14.5); WHITE BLOOD COUNT 5.7 10*3/uL (4.8-10.8)
[2021-05-05 08:01] VITALS: BP 108/62
[2021-05-05 12:00] VITALS: BP 103/51
[2021-05-05 16:00] VITALS: BP 88/60
[2021-05-05 16:19] VITALS: BP 104/52
[2021-05-05 20:00] VITALS: BP 105/55
[2021-05-06] VITALS: BP 116/79
[2021-05-06 07:54] LABS: BASO % 0.4 % (0.0-1.0); EOS # 0.2 10*3/uL (0.0-0.4); EOS % 3.4 % (1.0-4.0); HEMATOCRIT 39.5 % (42.0-52.0); LYMPH # 0.7 10*3/uL (1.3-4.4); LYMPH % 14.2 % (27.0-41.0); MEAN CELL VOLUME 92.9 fl (80.0-94.0); MEAN CORPUSCULAR HGB 26.8 pg (27.0-31.0); MEAN CORPUSCULAR HGB CONC 28.9 g/dl (33.0-37.0); MEAN PLATELET VOLUME 10.7 fl (9.6-12.3); MONO # 0.6 10*3/uL (0.1-1.0); MONO % 12.6 % (3.0-9.0); NEUT # 3.5 10*3/uL (2.3-7.9); PLATELET COUNT AUTOMATED 195 10*3/uL (130-400); RED BLOOD COUNT 4.25 10*6/uL (4.50-5.90); RED CELL DISTRI WIDTH 14.6 % (0-14.5)
[2021-05-06 08:00] VITALS: BP 112/80
[2021-05-06 08:13] LABS: CREATININE 1.85 mg/dL (0.70-1.30); POTASSIUM 4.1 mmol/L (3.5-5.1)
[2021-05-06 12:00] VITALS: BP 112/64; BP 114/81
[2021-05-06 16:00] VITALS: BP 138/81
[2021-05-06 20:00] VITALS: BP 116/64
[2021-05-07] VITALS: BP 112/90
[2021-05-07 04:00] VITALS: BP 120/67
[2021-05-07 06:43] LABS: POTASSIUM 3.6 mmol/L (3.5-5.1)
[2021-05-07 06:50] LABS: BASO % 0.3 % (0.0-1.0); CREATININE 1.82 mg/dL (0.70-1.30); EOS # 0.3 10*3/uL (0.0-0.4); EOS % 4.1 % (1.0-4.0); HEMATOCRIT 36.3 % (42.0-52.0); LYMPH # 1.1 10*3/uL (1.3-4.4); LYMPH % 15.9 % (27.0-41.0); MEAN CORPUSCULAR HGB CONC 30.3 g/dl (33.0-37.0); MEAN PLATELET VOLUME 11.1 fl (9.6-12.3); MONO # 0.9 10*3/uL (0.1-1.0); MONO % 13.3 % (3.0-9.0); NEUT # 4.5 10*3/uL (2.3-7.9); NEUT % 66.1 % (47.0-73.0); PLATELET COUNT AUTOMATED 222 10*3/uL (130-400); RED BLOOD COUNT 4.08 10*6/uL (4.50-5.90); RED CELL DISTRI WIDTH 14.6 % (0-14.5); WHITE BLOOD COUNT 6.8 10*3/uL (4.8-10.8)
[2021-05-07 08:00] VITALS: BP 115/95
[2021-05-07 12:00] VITALS: BP 121/54
[2021-05-07 16:00] VITALS: BP 118/61
[2021-05-07 20:00] VITALS: BP 106/54
[2021-05-08] VITALS: BP 116/46
[2021-05-08 05:56] VITALS: BP 118/56
[2021-05-08 07:16] LABS: BASO % 0.3 % (0.0-1.0); EOS # 0.2 10*3/uL (0.0-0.4); EOS % 3.1 % (1.0-4.0); HEMATOCRIT 36.2 % (42.0-52.0); LYMPH # 1.1 10*3/uL (1.3-4.4); LYMPH % 17.2 % (27.0-41.0); MEAN CELL VOLUME 89.6 fl (80.0-94.0); MEAN CORPUSCULAR HGB CONC 30.1 g/dl (33.0-37.0); MEAN PLATELET VOLUME 10.9 fl (9.6-12.3); MONO # 0.8 10*3/uL (0.1-1.0); MONO % 12.5 % (3.0-9.0); NEUT # 4.3 10*3/uL (2.3-7.9); NEUT % 66.6 % (47.0-73.0); PLATELET COUNT AUTOMATED 225 10*3/uL (130-400); RED BLOOD COUNT 4.04 10*6/uL (4.50-5.90); RED CELL DISTRI WIDTH 14.7 % (0-14.5); WHITE BLOOD COUNT 6.4 10*3/uL (4.8-10.8)
[2021-05-08 07:53] LABS: CREATININE 2.06 mg/dL (0.70-1.30); POTASSIUM 3.5 mmol/L (3.5-5.1)
[2021-05-08 08:00] VITALS: BP 105/54
[2021-05-08 12:00] VITALS: BP 103/67
== END 2021-05-08 16:00 | DRG 291 ==
LOC: ED 06:38 → EDHOLD 08:01 → 4E 05-04 15:34
PROVIDERS: Emergency Medicine; Hospitalist; Internal Medicine; Registered Nurse; Student in an Organized Health Care Education/Training Program; ADMIT Family Medicine; ATTEND Family Medicine
PROC: 5A09357 Assistance with Respiratory Ventilation, Less than 24 Consecutive Hours, Continuous Positive Airway Pressure (ICD-10-PCS; principal; 2021-05-02)
PROC: 5A09357 Assistance with Respiratory Ventilation, Less than 24 Consecutive Hours, Continuous Positive Airway Pressure (ICD-10-PCS; 2021-05-03)
PROC: 5A09357 Assistance with Respiratory Ventilation, Less than 24 Consecutive Hours, Continuous Positive Airway Pressure (ICD-10-PCS; 2021-05-04)
PROC: 5A09357 Assistance with Respiratory Ventilation, Less than 24 Consecutive Hours, Continuous Positive Airway Pressure (ICD-10-PCS; 2021-05-05)
DX: I11.0 Hypertensive heart disease with heart failure (principal); N17.0 Acute kidney failure with tubular necrosis; J96.01 Acute respiratory failure with hypoxia; R65.10 Systemic inflammatory response syndrome (SIRS) of non-infectious origin without acute organ dysfunction; E44.0 Moderate protein-calorie malnutrition; I48.20 Chronic atrial fibrillation, unspecified; I50.23 Acute on chronic systolic (congestive) heart failure; Z20.822 Contact with and (suspected) exposure to COVID-19; K21.9 Gastro-esophageal reflux disease without esophagitis; D64.9 Anemia, unspecified; R73.9 Hyperglycemia, unspecified; I25.10 Atherosclerotic heart disease of native coronary artery without angina pectoris; Z95.5 Presence of coronary angioplasty implant and graft; Z87.891 Personal history of nicotine dependence; Z83.3 Family history of diabetes mellitus; Z82.49 Family history of ischemic heart disease and other diseases of the circulatory system; Z68.29 Body mass index [BMI] 29.0-29.9, adult; Z79.899 Other long term (current) drug therapy

== ENCOUNTER 2021-07-05 16:22 | Inpatient (IN) | payer OTHER ==
[~2021-07-05] VITALS: Ht 175.2 cm; Wt 82.3 kg
[~2021-07-05 16:22] MED LIST changes: +AMOXICILLIN500 M2 PO; +BUMETANIDE1 MG PO; +CARVEDILOL25 MG PO; +ELIQUIS2.5 M1 PO; +HYDRALAZINE HC100 MG PO; +ISOSORBIDE DINI30 MG PO; +LORADAMED10 MG PO; +MUCUS RELIEF600 MG PO; +TESSALON PERLE100 MG PO; +TRELEGY ELLIPT1 EACH INH; +XALATAN 0.005%2.5 ML OU
[2021-07-05 16:28] VITALS: BP 138/97
[2021-07-05 17:13] LABS: BASO % 0.2 % (0.0-1.0); EOS # 0.2 10*3/uL (0.0-0.4); EOS % 1.8 % (1.0-4.0); HEMATOCRIT 38.1 % (42.0-52.0); LYMPH % 11.5 % (27.0-41.0); MEAN CELL VOLUME 93.2 fl (80.0-94.0); MEAN CORPUSCULAR HGB 27.6 pg (27.0-31.0); MEAN CORPUSCULAR HGB CONC 29.7 g/dl (33.0-37.0); MEAN PLATELET VOLUME 10.3 fl (9.6-12.3); MONO # 0.9 10*3/uL (0.1-1.0); MONO % 10.3 % (3.0-9.0); NEUT # 6.8 10*3/uL (2.3-7.9); NEUT % 75.9 % (47.0-73.0); PLATELET COUNT AUTOMATED 227 10*3/uL (130-400); RED BLOOD COUNT 4.09 10*6/uL (4.50-5.90); RED CELL DISTRI WIDTH 14.7 % (0-14.5); WHITE BLOOD COUNT 8.9 10*3/uL (4.8-10.8)
[2021-07-05 17:32] LABS: ACT PARTIAL THROMBO TIME 29.5 SECONDS (20.0-32.1); INTERNATIONAL NORM RATIO 1.1 (2.0-3.5)
[2021-07-05 17:35] LABS: ALBUMIN 2.7 gm/dl (3.1-4.5); ALKALINE PHOSPHATASE 106 U/L (45-117); BUN 44 mg/dl (7-24); CHLORIDE 108 mmol/L (98-107); CREATININE 2.23 mg/dL (0.70-1.30); POTASSIUM 4.3 mmol/L (3.5-5.1); SGOT/AST 13 IU/L (3-35); SGPT/ALT 18 U/L (12-78); SODIUM 143 mmol/L (136-145); TOTAL PROTEIN 7.1 gm/dL (6.4-8.2)
[2021-07-05 17:50] LABS: TROPONIN I < 0.015 ng/ml (<0.045)
[2021-07-05 18:15] LABS: ABG BASE EXCESS 6.4 mmol/L (-2.0-2.0); ARTERIAL BLOOD GAS PH 7.377 (7.35-7.45); ARTERIAL BLOOD GAS PO2 105.5 (80-90)
[2021-07-05 19:34] VITALS: BP 151/103
[2021-07-06] VITALS (9 sets, daily range): BP systolic 101–131; BP diastolic 61–91
[2021-07-06 06:11] LABS: CREATININE 2.15 mg/dL (0.70-1.30)
[2021-07-06 06:12] LABS: POTASSIUM 4.1 mmol/L (3.5-5.1)
[2021-07-06 06:21] LABS: BASO % 0.1 % (0.0-1.0); EOS # 0.1 10*3/uL (0.0-0.4); EOS % 1.7 % (1.0-4.0); LYMPH % 12.8 % (27.0-41.0); MEAN CORPUSCULAR HGB 27.4 pg (27.0-31.0); MEAN CORPUSCULAR HGB CONC 29.7 g/dl (33.0-37.0); MEAN PLATELET VOLUME 10.8 fl (9.6-12.3); MONO # 0.8 10*3/uL (0.1-1.0); MONO % 9.7 % (3.0-9.0); NEUT # 6.1 10*3/uL (2.3-7.9); NEUT % 75.3 % (47.0-73.0); PLATELET COUNT AUTOMATED 221 10*3/uL (130-400); RED BLOOD COUNT 4.02 10*6/uL (4.50-5.90); RED CELL DISTRI WIDTH 14.6 % (0-14.5); WHITE BLOOD COUNT 8.2 10*3/uL (4.8-10.8)
[2021-07-06 08:15] LABS: ABG BASE EXCESS 5.5 mmol/L (-2.0-2.0); ARTERIAL BLOOD GAS PH 7.341 (7.35-7.45); ARTERIAL BLOOD GAS PO2 129.6 (80-90)
[2021-07-07 00:12] VITALS: BP 119/82
[2021-07-07 06:52] LABS: ALBUMIN 2.5 gm/dl (3.1-4.5); POTASSIUM 3.5 mmol/L (3.5-5.1)
[2021-07-07 06:55] LABS: CREATININE 2.21 mg/dL (0.70-1.30); TOTAL PROTEIN 6.6 gm/dL (6.4-8.2)
[2021-07-07 08:00] VITALS: BP 126/77
[2021-07-07 12:00] VITALS: BP 106/81
[2021-07-07 16:00] VITALS: BP 139/79
[2021-07-07 20:00] VITALS: BP 158/90
[2021-07-08] VITALS (7 sets, daily range): BP systolic 92–137; BP diastolic 50–82
[2021-07-08 05:59] LABS: CREATININE 2.24 mg/dL (0.70-1.30); POTASSIUM 3.4 mmol/L (3.5-5.1)
[2021-07-08 06:15] LABS: BASO % 0.2 % (0.0-1.0); EOS # 0.2 10*3/uL (0.0-0.4); EOS % 2.1 % (1.0-4.0); HEMATOCRIT 36.7 % (42.0-52.0); LYMPH # 1.2 10*3/uL (1.3-4.4); LYMPH % 14.2 % (27.0-41.0); MEAN CELL VOLUME 94.1 fl (80.0-94.0); MEAN CORPUSCULAR HGB 27.2 pg (27.0-31.0); MEAN CORPUSCULAR HGB CONC 28.9 g/dl (33.0-37.0); MEAN PLATELET VOLUME 10.9 fl (9.6-12.3); MONO # 0.9 10*3/uL (0.1-1.0); MONO % 10.5 % (3.0-9.0); NEUT # 6.3 10*3/uL (2.3-7.9); NEUT % 72.8 % (47.0-73.0); PLATELET COUNT AUTOMATED 203 10*3/uL (130-400); RED CELL DISTRI WIDTH 14.6 % (0-14.5); WHITE BLOOD COUNT 8.6 10*3/uL (4.8-10.8)
[2021-07-09] VITALS: BP 127/77
[2021-07-09 06:59] LABS: ALBUMIN 2.6 gm/dl (3.1-4.5); CREATININE 2.29 mg/dL (0.70-1.30); POTASSIUM 4.2 mmol/L (3.5-5.1)
[2021-07-09 07:01] LABS: TOTAL PROTEIN 6.8 gm/dL (6.4-8.2)
[2021-07-09 07:06] LABS: HEMATOCRIT 36.3 % (42.0-52.0); MEAN CELL VOLUME 92.1 fl (80.0-94.0); MEAN CORPUSCULAR HGB 27.2 pg (27.0-31.0); MEAN CORPUSCULAR HGB CONC 29.5 g/dl (33.0-37.0); MEAN PLATELET VOLUME 11.1 fl (9.6-12.3); PLATELET COUNT AUTOMATED 194 10*3/uL (130-400); RED BLOOD COUNT 3.94 10*6/uL (4.50-5.90); RED CELL DISTRI WIDTH 14.3 % (0-14.5); WHITE BLOOD COUNT 12.3 10*3/uL (4.8-10.8)
[2021-07-09 07:54] LABS: PLATELET SUFFICIENCY NORMAL (NORMAL); TOTAL CELLS COUNTED 100 #CELLS
[2021-07-09 08:00] VITALS: BP 135/86
[2021-07-09 12:00] VITALS: BP 114/71
[2021-07-09 16:00] VITALS: BP 102/54
[2021-07-09 20:00] VITALS: BP 133/84
[2021-07-10] VITALS: BP 99/56
[2021-07-10 06:33] LABS: HEMATOCRIT 35.2 % (42.0-52.0); MEAN CELL VOLUME 90.3 fl (80.0-94.0); MEAN CORPUSCULAR HGB 27.2 pg (27.0-31.0); MEAN CORPUSCULAR HGB CONC 30.1 g/dl (33.0-37.0); PLATELET COUNT AUTOMATED 186 10*3/uL (130-400); RED CELL DISTRI WIDTH 14.3 % (0-14.5); WHITE BLOOD COUNT 13.4 10*3/uL (4.8-10.8)
[2021-07-10 06:50] LABS: CREATININE 2.12 mg/dL (0.70-1.30); POTASSIUM 4.5 mmol/L (3.5-5.1)
[2021-07-10 08:00] VITALS: BP 151/95; BP 152/88
[2021-07-10 09:00] LABS: TOTAL CELLS COUNTED 100 #CELLS
[2021-07-10 09:01] LABS: PLATELET SUFFICIENCY NORMAL (NORMAL)
[2021-07-10 12:00] VITALS: BP 109/59
[2021-07-10] MEDS ORDERED: APRESOLINE25 MG PO (13:08)
[2021-07-10] MEDS ORDERED: HYDRALAZINE HC100 MG PO (14:44)
[2021-07-10 16:00] VITALS: BP 110/65
[2021-07-10 20:00] VITALS: BP 151/81
[2021-07-11] VITALS: BP 99/62
[2021-07-11 06:25] LABS: ALBUMIN 2.7 gm/dl (3.1-4.5); CREATININE 2.13 mg/dL (0.70-1.30); POTASSIUM 4.6 mmol/L (3.5-5.1)
[2021-07-11 06:26] LABS: TOTAL PROTEIN 6.7 gm/dL (6.4-8.2)
[2021-07-11 08:00] VITALS: BP 128/86
[2021-07-11 12:00] VITALS: BP 121/72
[2021-07-11 16:00] VITALS: BP 150/99
[2021-07-11 20:00] VITALS: BP 107/80
[2021-07-12] VITALS: BP 94/57
[2021-07-12 06:34] LABS: BASO % 0.1 % (0.0-1.0); HEMATOCRIT 37.6 % (42.0-52.0); LYMPH # 0.6 10*3/uL (1.3-4.4); LYMPH % 4.4 % (27.0-41.0); MEAN CELL VOLUME 92.6 fl (80.0-94.0); MEAN CORPUSCULAR HGB 27.6 pg (27.0-31.0); MEAN CORPUSCULAR HGB CONC 29.8 g/dl (33.0-37.0); MEAN PLATELET VOLUME 11.3 fl (9.6-12.3); MONO # 0.6 10*3/uL (0.1-1.0); NEUT # 11.3 10*3/uL (2.3-7.9); NEUT % 89.9 % (47.0-73.0); PLATELET COUNT AUTOMATED 178 10*3/uL (130-400); RED BLOOD COUNT 4.06 10*6/uL (4.50-5.90); RED CELL DISTRI WIDTH 14.5 % (0-14.5); WHITE BLOOD COUNT 12.6 10*3/uL (4.8-10.8)
[2021-07-12 06:50] LABS: ALBUMIN 2.7 gm/dl (3.1-4.5); CREATININE 2.16 mg/dL (0.70-1.30); POTASSIUM 4.9 mmol/L (3.5-5.1); TOTAL PROTEIN 6.7 gm/dL (6.4-8.2)
[2021-07-12 08:00] VITALS: BP 116/64
[2021-07-12 12:00] VITALS: BP 104/62
[2021-07-12 13:16] VITALS: BP 110/70
[2021-07-12 16:00] VITALS: BP 109/62
[2021-07-12 20:00] VITALS: BP 100/81
[2021-07-13] VITALS: BP 135/85
[2021-07-13 06:29] LABS: BASO % 0.1 % (0.0-1.0); HEMATOCRIT 36.8 % (42.0-52.0); LYMPH # 0.4 10*3/uL (1.3-4.4); LYMPH % 3.4 % (27.0-41.0); MEAN CORPUSCULAR HGB 27.3 pg (27.0-31.0); MEAN CORPUSCULAR HGB CONC 29.6 g/dl (33.0-37.0); MEAN PLATELET VOLUME 11.5 fl (9.6-12.3); MONO # 0.6 10*3/uL (0.1-1.0); MONO % 4.9 % (3.0-9.0); NEUT # 11.6 10*3/uL (2.3-7.9); PLATELET COUNT AUTOMATED 174 10*3/uL (130-400); RED CELL DISTRI WIDTH 14.4 % (0-14.5); WHITE BLOOD COUNT 12.8 10*3/uL (4.8-10.8)
[2021-07-13 06:46] LABS: CREATININE 2.25 mg/dL (0.70-1.30); POTASSIUM 5.2 mmol/L (3.5-5.1)
[2021-07-13 08:00] VITALS: BP 112/56
[2021-07-13 12:00] VITALS: BP 110/68
[2021-07-13 16:00] VITALS: BP 143/83
[2021-07-13 20:00] VITALS: BP 90/65
[2021-07-14] VITALS: BP 93/36; BP 96/48
[2021-07-14 06:40] LABS: CREATININE 2.14 mg/dL (0.70-1.30)
[2021-07-14 08:00] VITALS: BP 145/97
[2021-07-14 08:32] LABS: INTERNATIONAL NORM RATIO 1.1 (2.0-3.5)
[2021-07-14 12:00] VITALS: BP 146/92
[2021-07-14 16:00] VITALS: BP 154/93
[2021-07-14 20:00] VITALS: BP 134/72
[2021-07-15] VITALS: BP 148/84
[2021-07-15 08:00] VITALS: BP 138/88
[2021-07-15 09:36] LABS: BASO % 0.1 % (0.0-1.0); HEMATOCRIT 37.2 % (42.0-52.0); LYMPH # 0.5 10*3/uL (1.3-4.4); LYMPH % 3.6 % (27.0-41.0); MEAN CORPUSCULAR HGB 27.3 pg (27.0-31.0); MEAN CORPUSCULAR HGB CONC 29.3 g/dl (33.0-37.0); MEAN PLATELET VOLUME 12.1 fl (9.6-12.3); MONO % 7.6 % (3.0-9.0); NEUT # 11.9 10*3/uL (2.3-7.9); NEUT % 87.2 % (47.0-73.0); NUCLEATED RED BLOOD CELL 0.1 % (0.0-0.0); PLATELET COUNT AUTOMATED 159 10*3/uL (130-400); RED CELL DISTRI WIDTH 14.7 % (0-14.5); WHITE BLOOD COUNT 13.6 10*3/uL (4.8-10.8)
[2021-07-15 09:50] LABS: CREATININE 2.15 mg/dL (0.70-1.30); POTASSIUM 5.6 mmol/L (3.5-5.1)
[2021-07-15 12:00] VITALS: BP 138/85
[2021-07-15 12:56] LABS: BODY FLUID WBC 426 /uL
[2021-07-15 12:59] LABS: BODY FLUID WBC 884 /uL
[2021-07-15 13:44] LABS: BF LYMPHOCYTES 85 %; BF MACROPHAGES 5 %; BF NEUTROPHILS 10 %
[2021-07-15 13:48] LABS: BF LYMPHOCYTES 94 %; BF MACROPHAGES 2 %; BF MESOTHELIALS 2 %; BF NEUTROPHILS 2 %
[2021-07-15 16:00] VITALS: BP 138/94
[2021-07-15 20:00] VITALS: BP 146/61
[2021-07-16] VITALS: BP 136/82
[2021-07-16 06:21] LABS: BASO % 0.1 % (0.0-1.0); LYMPH # 0.4 10*3/uL (1.3-4.4); LYMPH % 2.8 % (27.0-41.0); MEAN CORPUSCULAR HGB 27.6 pg (27.0-31.0); MEAN PLATELET VOLUME 12.5 fl (9.6-12.3); MONO # 1.2 10*3/uL (0.1-1.0); MONO % 8.4 % (3.0-9.0); NEUT # 12.5 10*3/uL (2.3-7.9); NEUT % 87.6 % (47.0-73.0); NUCLEATED RED BLOOD CELL 0.1 % (0.0-0.0); PLATELET COUNT AUTOMATED 163 10*3/uL (130-400); RED BLOOD COUNT 4.24 10*6/uL (4.50-5.90); RED CELL DISTRI WIDTH 14.9 % (0-14.5); WHITE BLOOD COUNT 14.2 10*3/uL (4.8-10.8)
[2021-07-16 06:29] LABS: CREATININE 2.2 mg/dL (0.70-1.30); POTASSIUM 4.9 mmol/L (3.5-5.1)
[2021-07-16 08:00] VITALS: BP 152/100
[2021-07-16 12:00] VITALS: BP 110/67
[2021-07-16 16:00] VITALS: BP 100/76
[2021-07-16 20:00] VITALS: BP 108/66
[2021-07-17] VITALS: BP 100/59
[2021-07-17 05:29] VITALS: BP 127/84
[2021-07-17 08:00] VITALS: BP 145/85
[2021-07-17 08:18] LABS: BASO % 0.1 % (0.0-1.0); HEMATOCRIT 37.2 % (42.0-52.0); LYMPH # 0.5 10*3/uL (1.3-4.4); LYMPH % 3.3 % (27.0-41.0); MEAN CELL VOLUME 90.1 fl (80.0-94.0); MEAN CORPUSCULAR HGB 27.4 pg (27.0-31.0); MEAN CORPUSCULAR HGB CONC 30.4 g/dl (33.0-37.0); MEAN PLATELET VOLUME 11.7 fl (9.6-12.3); MONO # 1.4 10*3/uL (0.1-1.0); MONO % 8.1 % (3.0-9.0); NEUT # 14.5 10*3/uL (2.3-7.9); NEUT % 87.4 % (47.0-73.0); NUCLEATED RED BLOOD CELL 0.1 % (0.0-0.0); PLATELET COUNT AUTOMATED 148 10*3/uL (130-400); RED BLOOD COUNT 4.13 10*6/uL (4.50-5.90); WHITE BLOOD COUNT 16.6 10*3/uL (4.8-10.8)
[2021-07-17 08:31] LABS: CREATININE 2.07 mg/dL (0.70-1.30); POTASSIUM 4.6 mmol/L (3.5-5.1)
[2021-07-17 12:00] VITALS: BP 126/71
[2021-07-17 16:00] VITALS: BP 122/77
[2021-07-17 20:00] VITALS: BP 133/78
[2021-07-18] VITALS (7 sets, daily range): BP systolic 104–151; BP diastolic 50–95
[2021-07-18 06:52] LABS: BASO % 0.1 % (0.0-1.0); LYMPH # 0.5 10*3/uL (1.3-4.4); MEAN CELL VOLUME 91.3 fl (80.0-94.0); MEAN CORPUSCULAR HGB 27.4 pg (27.0-31.0); MONO # 1.1 10*3/uL (0.1-1.0); MONO % 6.8 % (3.0-9.0); NEUT # 14.7 10*3/uL (2.3-7.9); NEUT % 88.5 % (47.0-73.0); NUCLEATED RED BLOOD CELL 0.1 % (0.0-0.0); PLATELET COUNT AUTOMATED 157 10*3/uL (130-400); RED BLOOD COUNT 4.27 10*6/uL (4.50-5.90); RED CELL DISTRI WIDTH 15.2 % (0-14.5); WHITE BLOOD COUNT 16.6 10*3/uL (4.8-10.8)
[2021-07-18 07:06] LABS: CREATININE 2.09 mg/dL (0.70-1.30); POTASSIUM 4.6 mmol/L (3.5-5.1)
[2021-07-19] VITALS: BP 128/74
[2021-07-19 05:14] VITALS: BP 124/72
[2021-07-19 06:58] LABS: BASO % 0.1 % (0.0-1.0); LYMPH # 0.4 10*3/uL (1.3-4.4); LYMPH % 2.8 % (27.0-41.0); MEAN CELL VOLUME 90.7 fl (80.0-94.0); MEAN CORPUSCULAR HGB 27.7 pg (27.0-31.0); MEAN CORPUSCULAR HGB CONC 30.6 g/dl (33.0-37.0); MONO % 6.7 % (3.0-9.0); NEUT # 13.6 10*3/uL (2.3-7.9); PLATELET COUNT AUTOMATED 139 10*3/uL (130-400); RED BLOOD COUNT 3.97 10*6/uL (4.50-5.90); RED CELL DISTRI WIDTH 15.3 % (0-14.5); WHITE BLOOD COUNT 15.3 10*3/uL (4.8-10.8)
[2021-07-19 07:07] LABS: CREATININE 1.82 mg/dL (0.70-1.30); POTASSIUM 4.5 mmol/L (3.5-5.1)
[2021-07-19 08:00] VITALS: BP 128/82
[2021-07-19 12:00] VITALS: BP 134/78
[2021-07-19 16:00] VITALS: BP 129/80
[2021-07-19 20:00] VITALS: BP 135/80
[2021-07-20] VITALS: BP 101/59
[2021-07-20 06:20] LABS: BASO % 0.2 % (0.0-1.0); HEMATOCRIT 37.8 % (42.0-52.0); LYMPH # 0.4 10*3/uL (1.3-4.4); LYMPH % 2.7 % (27.0-41.0); MEAN CELL VOLUME 91.5 fl (80.0-94.0); MEAN CORPUSCULAR HGB 27.4 pg (27.0-31.0); MEAN CORPUSCULAR HGB CONC 29.9 g/dl (33.0-37.0); MEAN PLATELET VOLUME 11.8 fl (9.6-12.3); MONO % 5.8 % (3.0-9.0); NEUT # 14.9 10*3/uL (2.3-7.9); NEUT % 89.7 % (47.0-73.0); PLATELET COUNT AUTOMATED 145 10*3/uL (130-400); RED BLOOD COUNT 4.13 10*6/uL (4.50-5.90); RED CELL DISTRI WIDTH 15.2 % (0-14.5); WHITE BLOOD COUNT 16.6 10*3/uL (4.8-10.8)
[2021-07-20 06:34] LABS: CREATININE 1.78 mg/dL (0.70-1.30); POTASSIUM 4.5 mmol/L (3.5-5.1)
[2021-07-20 08:00] VITALS: BP 138/78
[2021-07-20] MEDS ORDERED: PREDNISONE10 MG PO (11:32)
[2021-07-20 12:00] VITALS: BP 108/65
== END 2021-07-20 15:30 | disposition home or self-care (01) | DRG 871 ==
LOC: ED 16:22 → 4E 18:24 → EDHOLD 18:24 → 4E 07-06 21:56
PROVIDERS: Internal Medicine; Internal Medicine Critical Care Medicine; Registered Nurse; Student in an Organized Health Care Education/Training Program; ADMIT Internal Medicine; ATTEND Internal Medicine
PROC: 5A09357 Assistance with Respiratory Ventilation, Less than 24 Consecutive Hours, Continuous Positive Airway Pressure (ICD-10-PCS; principal; 2021-07-05)
PROC: 4A02XM4 Measurement of Cardiac Total Activity, External Approach (ICD-10-PCS; 2021-07-07)
PROC: 3E073KZ Introduction of Other Diagnostic Substance into Coronary Artery, Percutaneous Approach (ICD-10-PCS; 2021-07-07)
PROC: 0W9B30Z Drainage of Left Pleural Cavity with Drainage Device, Percutaneous Approach (ICD-10-PCS; 2021-07-15)
PROC: 0W9930Z Drainage of Right Pleural Cavity with Drainage Device, Percutaneous Approach (ICD-10-PCS; 2021-07-15)
DX: A41.9 Sepsis, unspecified organism (principal); I50.23 Acute on chronic systolic (congestive) heart failure; E43 Unspecified severe protein-calorie malnutrition; J96.02 Acute respiratory failure with hypercapnia; N17.0 Acute kidney failure with tubular necrosis; J15.6 Pneumonia due to other Gram-negative bacteria; I13.0 Hypertensive heart and chronic kidney disease with heart failure and stage 1 through stage 4 chronic kidney disease, or unspecified chronic kidney disease; J98.11 Atelectasis; J93.9 Pneumothorax, unspecified; D68.59 Other primary thrombophilia; J91.8 Pleural effusion in other conditions classified elsewhere; R18.8 Other ascites; E83.41 Hypermagnesemia; D64.9 Anemia, unspecified; I25.10 Atherosclerotic heart disease of native coronary artery without angina pectoris; K57.90 Diverticulosis of intestine, part unspecified, without perforation or abscess without bleeding; K29.70 Gastritis, unspecified, without bleeding; N18.32 Chronic kidney disease, stage 3b; R73.9 Hyperglycemia, unspecified; K21.9 Gastro-esophageal reflux disease without esophagitis; I48.91 Unspecified atrial fibrillation; E87.8 Other disorders of electrolyte and fluid balance, not elsewhere classified; K80.20 Calculus of gallbladder without cholecystitis without obstruction; I45.10 Unspecified right bundle-branch block; Z82.49 Family history of ischemic heart disease and other diseases of the circulatory system; Z83.3 Family history of diabetes mellitus; Z68.28 Body mass index [BMI] 28.0-28.9, adult